=== PATIENT | female | born 1990 | race African-American/Black ===

== ENCOUNTER 2019-04-26 01:54 | Emergency (ER) | payer SELFPAY ==
[~2019-04-26] VITALS: Ht 167.6 cm; Wt 69.0 kg
[2019-04-26] MEDS ORDERED: ONDANSETRON 4MG ODT PO STA (02:58)
[2019-04-26] MEDS ORDERED: LORAZEPAM 2MG/ML CPJ IM ONE (03:30)
[2019-04-26] MEDS ORDERED: HALOPERIDOL LACTATE 5MG/ML VIAL IM ONE ×2 (03:45→04:00)
[2019-04-26 10:21] VITALS: BP 121/73
== END 2019-04-26 10:25 | disposition home or self-care (01) ==
LOC: ER 01:54
DX: F10.129 Alcohol abuse with intoxication, unspecified (principal); F19.10 Other psychoactive substance abuse, uncomplicated; Z98.890 Other specified postprocedural states; Y90.9 Presence of alcohol in blood, level not specified
CPT/HCPCS: 81025; 96372; 99284; J1630; J2060; Z7610